=== PATIENT | female | born 1960 | race Caucasian/White ===

== ENCOUNTER 2021-07-05 22:01 | Emergency (ER) | payer OTHER | END 2021-07-06 00:35 | disposition home or self-care (01) | LOC: ED 22:01 | DX: F10.929 Alcohol use, unspecified with intoxication, unspecified (principal); Z04.1 Encounter for examination and observation following transport accident; Y90.9 Presence of alcohol in blood, level not specified; V89.2XXA Person injured in unspecified motor-vehicle accident, traffic, initial encounter; Y93.89 Activity, other specified; Y92.89 Other specified places as the place of occurrence of the external cause; Y99.8 Other external cause status ==